=== PATIENT | male | born 2000 | race African-American/Black ===

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

== ENCOUNTER 2021-08-10 18:45 | Emergency (ER) | payer OTHER ==
[2021-08-10 19:15] VITALS: BP 120/69; PULSE 83; TEMP 97.9; BMI 20.5
[2021-08-10] MEDS ORDERED: diazePAM 5 MG TABLET PO ONE (20:34)
[2021-08-10] MEDS ORDERED: risperiDONE 1 MG TABLET PO ONE (20:34)
[2021-08-10] MEDS ORDERED: diazePAM 5 MG TABLET ONE (20:40)
[2021-08-10] MEDS ORDERED: risperiDONE 0.5 MG TABLET ONE (20:41)
[2021-08-10] MEDS ORDERED: ACETAMINOPHEN 500 MG TABLET (FP) PO ONE (20:57)
[2021-08-10] MEDS ORDERED: ACETAMINOPHEN 500 MG TABLET (FP) ONE (21:07)
== END 2021-08-10 23:03 | disposition home or self-care (01) ==
LOC: JER 18:45
DX: S09.90XA Unspecified injury of head, initial encounter (principal); W22.8XXA Striking against or struck by other objects, initial encounter; Y92.9 Unspecified place or not applicable
CPT/HCPCS: 70450-TC; 99284-25; J2794